=== PATIENT | female | born 1965 | race African-American/Black ===

== ENCOUNTER 2023-07-28 00:55 | Emergency (ER) | payer OTHER ==
[~2023-07-28] VITALS: Ht 172.7 cm; Wt 73.0 kg
[2023-07-28 00:58] VITALS: O2SAT 100
[2023-07-28] MEDS ORDERED: KETOROLAC 60MG/2ML VIAL IM ONE (03:15)
[2023-07-28] MEDS ORDERED: IBUP-2028 MT (05:07)
[2023-07-28] MEDS ORDERED: HYDR-4001 MT (05:13)
[2023-07-28] MEDS ORDERED: HYDROCODONE/ACETAMINOPHEN 5/325MG TABLET PO ONE (05:15)
[2023-07-28 06:26] VITALS: BP 135/76; PULSE 83; RESP 16; TEMP 98
== END 2023-07-28 06:26 | disposition home or self-care (01) ==
LOC: ER 00:55
DX: S39.012A Strain of muscle, fascia and tendon of lower back, initial encounter (principal); X58.XXXA Exposure to other specified factors, initial encounter; Y93.89 Activity, other specified; Y92.89 Other specified places as the place of occurrence of the external cause; Y99.8 Other external cause status
CPT/HCPCS: 99283; 96372; J1885